=== PATIENT | male | born 1985 | race Caucasian/White ===

== ENCOUNTER 2018-10-31 17:02 | Emergency (ER) | payer OTHER, SELFPAY ==
[2018-10-31] VITALS (16 sets, daily range): BP systolic 103–128; BP diastolic 44–77; PULSE 55–94; RESP 12–27; O2SAT 96–100
--- NOTE | 2018-10-31 17:11 | NUR.NOTE ---
Nursing Note: Pt is speaking clearly states he did not eat the glove. Correction officers state they watched him eat the glove with his back to them.
[2018-10-31 18:02] LABS: Abs Immature Grans 0.01 k/cumm (0.0-0.09); Absolute Basophil Count 0.03 k/cumm (0.0-0.2); Absolute Eosinophil Count 0.05 k/cumm (0.0-0.7); Absolute Lymphocyte Count 1.31 k/cumm (1.2-3.4); Absolute Monocyte Count 0.67 k/cumm (0.11-0.7); Absolute Neutrophil Count 7.31 k/cumm (1.2-6.7); Basophils % 0.3; Eosinophils % 0.5; HCT 41.1 % (40.0-50.0); HGB 14.1 g/dL (13.5-17.5); Immature Grans % 0.1; Mean Corp. HGB Concentration 34.3 g/dL (32.0-36.0); Mean Corpuscular Hemoglobin 30.9 pg (27.0-33.0); Mean Corpuscular Volume 90.1 fL (80-95); Mean Platelet Volume 10.5 fL (8.0-11.0); Monocytes % 7.1; Platelet Count 179 x1000/uL (130-400); RBC 4.56 m/cumm (4.50-6.00); RBC Distribution Width 12.8 % (11.8-14.1); White Blood Cell Count 9.38 k/cumm (4.4-10.8)
[2018-10-31 18:17] LABS: INR 1.1 (0.9-1.1); PTT Activated 24.5 sec (21.0-31.4); Prothrombin Time 10.8 sec (9.3-11.0)
[2018-10-31 18:18] LABS: ALT 32 U/L (12-78); AST 17 U/L (15-37); Albumin 4.2 g/dL (3.4-5.0); Alkaline Phosphatase 61 U/L (46-116); Anion Gap 7.5 mmol/L (3-11); BUN 16 mg/dL (7-18); Bilirubin, Total 0.4 mg/dL (0.2-1.0); CO2 29.5 mmol/L (21.0-32.0); CREATININE 1.17 mg/dL (0.70-1.30); Calcium 9.2 mg/dL (8.5-10.1); Chloride 104 mmol/L (98-107); Glucose 96 mg/dL (70-100); Potassium 4.2 mmol/L (3.5-5.1); Sodium 141 mmol/L (136-145); Total Protein 7.2 g/dL (6.4-8.2)
--- NOTE | 2018-10-31 18:26 | W.ED.GENAD ---
Discharge Plan Disposition Patient Disposition: HOME Condition: Improving Discharge Details Chief Complaint: GenMedical Clinical Impression: Altered mental status Primary Care Provider: None,None ED Provider: Almaz Ray Discharge Instructions Instructions: Altered Mental Status (ED) Additional Instructions: Refrain from any recreational drug use. Follow-up with your primary care doctor in 2 days for reevaluation. Return immediately to the emergency department with any worsening or concerning symptoms. Discharge Data Discharge Date/Time-TO BE ENTERED AT DEPARTURE: 10/31/18 19:56 Discharge Physician: Almaz Ray Medical Decision Making 32-year-old male presents from the correctional facility for unresponsiveness and concern for ingestion. Patient seems evasive when answering questions. Patient states he took buprenorphine from 1 of the other inmates and also performed a rectal exam on himself. Staff states that he ate the glove which he used for rectal but he denies this. Patient is sleeping at times, but easily arousable and alert and oriented x3. Vitals within normal limits. Abdomen soft and nontender. Normal rectal exam. We will do a work-up for ingestion and toxicology. Will place an IV, bolus IV fluids, labs, urinalysis, UDS, Tylenol, salicylate, CT head, chest x-ray and abdominal x-ray and EKG. 1915 --patient now awake and alert answering more questions. States that he snorted a buprenorphine from another inmate and then put a tied ball rubber glove up his anus and thinking it was filled with a medication but then quickly pushed it back out when he become nervous about what he did and then opened it and it was filled with gloves but no meds or drugs. A correctional facility staff member confirmed this and states he found this in the room and it was covered with poop and only gloves and no other drugs. Labs and imaging reviewed and unremarkable. CT head negative. UDS positive for THC but otherwise negative. Patient refused the chest x-ray and abdominal x-ray. He denies any abdominal pain. Patient demonstrates capacity to make decisions and is able to verbalize why he he was brought here. He denies any acute complaints at this time. At this point in time, patient is awake and alert, hemodynamically stable and appropriate for transfer back to the correctional facility. Discussed with staff that if there is any acute change in patient's behavior to return immediately to the emergency department Medical Records Medical records reviewed: Yes I reviewed the patient's medical records. Imaging Data Radiologic Study: Radiologist's impression: CT Head Without Contrast EXAM DATE/TIME: 10/31/2018 5:33 PM CLINICAL HISTORY: 32 years old, male; Signs and symptoms; Other: Unresponsiveness, R/O acute process TECHNIQUE: Imaging protocol: Axial computed tomography images of the head without contrast. Coronal and sagittal reformatted images were created and reviewed. Radiation optimization: All CT scans at this facility use at least one of these dose optimization techniques: automated exposure control; mA and/or kV adjustment per patient size (includes targeted exams where dose is matched to clinical indication); or iterative reconstruction. COMPARISON: No relevant prior studies available. FINDINGS: Brain: No extra-axial fluid collections. No evidence of acute intracranial hemorrhage. No evidence of acute or subacute intracranial ischemia/infarct. No intracranial mass lesions. Midline shift: No midline shift or herniation. Ventricles: Ventricles normal. Bones/joints: The calvarium and visualized facial bones are intact. Sinuses: Patchy mild opacification and mucosal thickening in the left frontal ethmoid, maxillary, and sphenoid sinus distributions. Mastoid air cells: Visualized mastoid air cells are clear. Orbits: Orbital contents demonstrate no evidence of acute abnormality. Soft tissues: The scalp and visualized soft tissues are unremarkable. Vasculature: The visualized major intracranial arterial segments demonstrate no gross abnormality by noncontrast CT. IMPRESSION: 1. No acute intracranial process. 2. Evidence of chronic sinus inflammatory disease in the left paranasal sinuses. Lab Data Lab results reviewed: Yes I reviewed the patient's lab results. ECG Data Attestation: I personally reviewed and interpreted this ECG (s) as follows: Interpretation: Rate of 71, sinus, no acute ST elevation or depression. QTc 406. QRS 90 HPI General Mode of arrival: EMS. Date/Time Provider Initiated Documentation: 10/31/18 17:26. Limitations to Documentation: altered mental status. Information obtained by: patient and police. HPI Narrative: Patient is a 32-year-old male with a history of hepatitis C, opioid dependence who presents for decreased responsiveness at the correctional facility. Staff from the correctional facility state that patient appeared to have possibly swallowed a glove with feces in it. They state they were concerned that patient had access to some drugs and put him in a dry cell and observed him with a latex glove on the monitor. They state approximate 2 to 3 hours later he vomited one time and then became agitated. Sometime later he seemed to be out of it and only responsive to sternal rub. Per staff, patient is more alert now. General Stated Complaint: GenMedical RASHID: 3 Review of Systems Review of Systems All systems reviewed & are unremarkable except as noted in HPI and below Constitutional Reports as per HPI, Denies chills and Denies fever(s) Eyes Denies blurry vision ENT Denies dizziness, Denies sore throat and Denies throat swelling Cardiovascular Denies chest pain and Denies dyspnea Respiratory Denies cough and Denies dyspnea Gastrointestinal Denies abdominal pain, Denies diarrhea and Denies vomiting Genitourinary Denies hematuria and Denies dysuria Musculoskeletal Denies back pain and Denies numbness Integumentary/Breasts Denies lesions and Denies rash Neurologic Denies dizziness, Denies focal weakness and Denies numbness Allergic/Immunologic Denies throat swelling [facility] Medical History Depression (Chronic) Hepatitis (Chronic) Surgical History History of hernia repair (Chronic) Social History Smoking/Tobacco Use Status: Former Tobacco Use Alcohol Intake: never Drug use: Daily Substance use type: marijuana, crack/cocaine and other Exam Const General: cooperative and healthy appearing Orientation: alert and awake HENMT Head: normal to inspection Ears: hearing grossly normal bilaterally, external ears normal and TM's normal bilaterally General nose exam: external nose normal Face and sinus: normal facial exam Mouth: oral mucosae normal Teeth and gingiva: dentition normal Throat: posterior oropharynx normal Eyes General: appearance normal, both eyes and all related structures Eyelids: eyelids normal Pupils: PERRL EOM: EOM intact bilaterally Neck Neck: normal visual inspection Lymphatic: no lymphadenopathy noted Chest Chest: normal inspection of the chest Resp Effort & Inspection: normal respiratory effort and able to speak in complete sentences Auscultation: clear to auscultation bilaterally Cardio Rate: regular rate Rhythm: regular rhythm GI Inspection: normal to inspection Palpation: soft, not firm, no guarding, no hepatosplenomegaly, no masses and nontender Auscultation: normal bowel sounds Back/Spine/Pelvis Back: no CVA tenderness Skin General skin exam: no rashes or lesions noted Neuro General: alert and awake Cranial Nerves: CN's II-XI intact bilaterally Cognition: normal cognition Speech: speech normal Gait: normal gait Motor: muscle tone normal throughout and strength 5/5 throughout Sensory Exam: no sensory deficits noted Extrem General: normal to inspection, full ROM and normal capillary refill Psych Appearance: grossly normal Mental Status: mental status grossly normal Speech and Movement: speech and movement normal Affect: normal affect Thought Process: normal Course Vital Signs Pulse 78 10/31/18 17:01 Respiratory Rate 14 10/31/18 17:01 Blood Pressure 128/77 10/31/18 17:01 Pulse Oximetry 100 10/31/18 17:01 Pulse 57 L 10/31/18 18:01 Pulse 63 10/31/18 18:01 Respiratory Rate 12 10/31/18 18:01 Respiratory Effort 10/31/18 17:13 Respiratory Depth Normal 10/31/18 17:13 Respiratory Pattern Normal 10/31/18 17:13 Blood Pressure 103/45 L 10/31/18 18:01 Blood Pressure Mean 59 10/31/18 18:01 Blood Pressure Position Supine 10/31/18 17:01 Pulse Oximetry 98 10/31/18 18:01 Oxygen Delivery Method Room Air 10/31/18 17:01 Oxygen Flow Rate 0 10/31/18 17:01 Pain Level 0 10/31/18 17:01 Lab/Test Results Lab/Test Results: Laboratory Tests Range/Units 10/31/18 17:55 WBC (4.4-10.8) k/cumm 9.38 RBC (4.50-6.00) m/cumm 4.56 Hgb (13.5-17.5) g/dL 14.1 Hct (40.0-50.0) % 41.1 MCV (80-95) fL 90.1 MCH (27.0-33.0) pg 30.9 MCHC (32.0-36.0) g/dL 34.3 RDW (11.8-14.1) % 12.8 Plt Count (130-400) x1000/uL 179 MPV (8.0-11.0) fL 10.5 Immature Gran % 0.1 Neutrophils % 78.0 Lymphocytes % 14.0 Monocytes % 7.1 Eosinophils % 0.5 Basophils % 0.3 Absolute Neutrophils (1.2-6.7) k/cumm 7.31 H Absolute Lymphocytes (1.2-3.4) k/cumm 1.31 Absolute Monocytes (0.11-0.7) k/cumm 0.67 Absolute Eosinophils (0.0-0.7) k/cumm 0.05 Absolute Basophils (0.0-0.2) k/cumm 0.03
[2018-10-31 18:28] LABS: Salicylate 3.6 mg/dL (2.8-20.0)
[2018-10-31 18:33] LABS: ETHANOL BLOOD < 3.0 mg/dL (<3); Troponin I < 0.02 ng/mL (0.00-0.06)
[2018-10-31 18:34] LABS: Acetaminophen < 2 ug/mL (10-30)
--- NOTE | 2018-10-31 18:45 | DI.CT_ITS ---
SYMPTOMS/DIAGNOSIS: UNRESPONSIVENESS, ? ACUTE PROCESS NONCONTRAST HEAD CT: There are no prior comparison exams. No intracranial hemorrhage, mass or infarct is seen. There is no evidence of skull fracture. There is some mucous retention in the left maxillary sinus as well as some ethmoid sinuses and the left sphenoid sinus. The mastoid air cells appear clear. IMPRESSION: Left sided sinus disease, otherwise negative.
--- NOTE | 2018-10-31 18:59 | DI.VRAD_ITS ---
EXAM: CT Head Without Contrast EXAM DATE/TIME: 10/31/2018 5:33 PM CLINICAL HISTORY: 32 years old, male; Signs and symptoms; Other: Unresponsiveness, R/O acute process TECHNIQUE: Imaging protocol: Axial computed tomography images of the head without contrast. Coronal and sagittal reformatted images were created and reviewed. Radiation optimization: All CT scans at this facility use at least one of these dose optimization techniques: automated exposure control; mA and/or kV adjustment per patient size (includes targeted exams where dose is matched to clinical indication); or iterative reconstruction. COMPARISON: No relevant prior studies available. FINDINGS: Brain: No extra-axial fluid collections. No evidence of acute intracranial hemorrhage. No evidence of acute or subacute intracranial ischemia/infarct. No intracranial mass lesions. Midline shift: No midline shift or herniation. Ventricles: Ventricles normal. Bones/joints: The calvarium and visualized facial bones are intact. Sinuses: Patchy mild opacification and mucosal thickening in the left frontal ethmoid, maxillary, and sphenoid sinus distributions. Mastoid air cells: Visualized mastoid air cells are clear. Orbits: Orbital contents demonstrate no evidence of acute abnormality. Soft tissues: The scalp and visualized soft tissues are unremarkable. Vasculature: The visualized major intracranial arterial segments demonstrate no gross abnormality by noncontrast CT. IMPRESSION: 1. No acute intracranial process. 2. Evidence of chronic sinus inflammatory disease in the left paranasal sinuses. Dictated and Authenticated by: Rogelio Ruelas MD. Ordering:JANETT Muse MD
[2018-10-31 19:26] LABS: Bilirubin Negative (Negative); Blood Negative (Negative); Clarity Clear; Glucose Negative (Negative); Ketones 40 mg/dL (Negative); Leukocyte Esterase Negative (Negative); Nitrite Negative (Negative); Specific Gravity >= 1.030 (1.005-1.025); Urobilinogen 0.2 EU/dL (Up TO 0.2); pH 5.5 (5-8)
[2018-10-31 19:40] LABS: Bacteria Negative HPF (Negative); C & S Indicated? No; Casts Negative LPF (Negative); Crystals Few Calcium Oxalate HPF (Negative); Epithelial Cells Few HPF (Negative); Mucus Negative (Negative); RBC 0-2 (0-2)
[2018-10-31 19:42] LABS: *AMPHETAMINES SCREEN URINE Negative (Negative); *BARBITURATES SCREEN URINE Negative (Negative); *BENZODIAZEPINES SCREEN URINE Negative (Negative); Cannabinoids THC POSITIVE (Negative); Cocaine Screen,Urine Negative (Negative); METHADONE URINE SCREEN Negative (Negative); OPIATES URINE SCREEN Negative (Negative); Tricyclic Antidepressants Negative (Negative)
[2018-11-03 10:16] LABS: Buprenorphine 169.3 ng/mL; Norbuprenorphine 431.5 ng/mL
== END 2018-10-31 19:56 | disposition home or self-care (01) ==
PROVIDERS: Nurse Practitioner Adult Health; Emergency Provider Physician Assistant
DX: R41.82 Altered mental status, unspecified (principal); F11.20 Opioid dependence, uncomplicated; Z53.29 Procedure and treatment not carried out because of patient's decision for other reasons
CPT/HCPCS: 36415; 80053; 80307; 93005; 96360; 99285; 70450; 80320; 80329; 81003; 81015; 83735; 84484; 85025; 85610; 85730; 93010